=== PATIENT | male | born 1965 | race Caucasian/White ===

== ENCOUNTER 2017-06-11 07:51 | Emergency (ER) | payer OTHER ==
[2017-06-11 08:02] VITALS: BP 104/71
--- NOTE | 2017-06-11 08:22 | UC ---
Respiratory Complaint HPI - HPI Summary HPI Summary: Patient presents with complaints of six day onset runny nose, sore throat, and loose cough. He denies fever, chills, chest pain, dyspnea, abdominal pian, nausea, vomiting, or diarrhea. He reports no know ill contact, recent travel. He states he just wanted to make sure he didn't need additional treatment. - History of Current Complaint Chief Complaint: UCRespiratory Stated Complaint: FEVER SINUS ISSUE Time Seen by Provider: 06/11/17 08:10 Hx Obtained From: Patient Onset/Duration: Gradual Onset, Lasting Days Severity Initially: Moderate Severity Currently: Moderate Character: Cough: Nonproductive Aggravating Factors: Nothing Alleviating Factors: Spontaneous Resolution Associated Signs And Symptoms: Positive: URI, Nasal Congestion, Sinus Discomfort - Risk Factors Pulmonary Embolism Risk Factors: Negative Cardiac Risk Factors: Negative Pseudomonas Risk Factors: Negative Tuberculosis Risk Factors: Negative - Allergies/Home Medications Allergies/Adverse Reactions: Allergies Allergy/AdvReac Type Severity Reaction Status Date / Time No Known Allergies Allergy Verified 06/11/17 07:57 Home Medications: Home Medications Aspirin [Aspirin Adult Low Dose] 06/11/17 [History] Metoprolol Tartrate TAB* [Lopressor TAB*] 06/11/17 [History] PMH/Surg Hx/FS Hx/Imm Hx Previously Healthy: Yes Cardiovascular History: Atrial Fibrillation - Surgical History Surgical History: Yes Surgery Procedure, Year, and Place: 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 app[facility] - Family History Known Family History: Positive: Cardiac Disease - Social History Occupation: Employed Full-time Lives: Alone Alcohol Use: Occasionally Substance Use Type: None Smoking Status (MU): Never Smoked Tobacco - Immunization History Most Recent Influenza Vaccination: 2012 Most Recent Tetanus Shot: unknown Most Recent Pneumonia Vaccination: never Review of Systems Constitutional: Fatigue Skin: Negative Eyes: Negative ENT: Sore Throat, Nasal Discharge, Sinus Congestion Respiratory: Cough Cardiovascular: Negative Gastrointestinal: Negative Genitourinary: Negative Motor: Negative Neurovascular: Negative Musculoskeletal: Negative Neurological: Negative Psychological: Negative Is Patient Immunocompromised?: No All Other Systems Reviewed And Are Negative: Yes Physical Exam Triage Information Reviewed: Yes Appearance: Well-Appearing Vital Signs: Initial Vital Signs Temp 98.2 F 06/11/17 07:59 Pulse 58 06/11/17 07:59 Resp 16 06/11/17 07:59 BP 104/71 06/11/17 07:59 Pulse Ox 98 06/11/17 07:59 Vital Signs Reviewed: Yes Eye Exam: Normal ENT: Positive: Pharyngeal erythema Dental Exam: Normal Neck exam: Normal Neck: Positive: 1 Respiratory Exam: Normal Cardiovascular Exam: Normal Skin Exam: Normal UC Diagnostic Evaluation - Laboratory O2 Sat by Pulse Oximetry: 98 Respiratory Course/Dx - Course Course Of Treatment: Patient presents with six day onset runny nose, sore throat , chest congestion and cough. Vital signs are normal, exam benign, with mile erythema of the pharynx. Rapid strep was negative, and influennza Bscreen postive. However the patient is outside the window for treatment. The test results were discussed with the patient. Lung sounds were grossly clear, and he was in no repiratory distress. His symptomatology was consistent with viral syndrome. Recommendations include rest, increase fluids, OTC cough and cold medications and monitory or symptoms improvement, if symptoms do not improve as ancitipated he was told to follow up with PCP, of go to the ER. - Differential Dx/Diagnosis Differential Diagnosis/HQI/PQRI: Influenza, Other - pharyngitis Provider Diagnoses: influenza b. pharyngitis Discharge - Discharge Plan Condition: Stable Disposition: HOME Patient Education Materials: Influenza (ED), Pharyngitis (ED) Referrals: Demarcus Crow MD [Primary Care Provider] -
== END 2017-06-11 08:43 | disposition home or self-care (01) ==
LOC: UCEAST 07:51
DX: J10.1 Influenza due to other identified influenza virus with other respiratory manifestations (principal); J02.9 Acute pharyngitis, unspecified; I48.91 Unspecified atrial fibrillation; Z79.82 Long term (current) use of aspirin
CPT/HCPCS: 87502; 87651; 99211; G0463

== ENCOUNTER 2017-06-18 08:58 | Emergency (ER) | payer OTHER ==
--- NOTE | 2017-06-18 09:04 | UC ---
Throat Pain/Nasal Ra HPI - HPI Summary HPI Summary: 52 year old male presents with sinus congestion, cough and headache - History of Current Complaint Stated Complaint: SINUS CONGESTION Time Seen by Provider: 06/18/17 09:04 Hx Obtained From: Patient Onset/Duration: Sudden Onset Severity: Moderate Pain Scale Used: 0-10 Numeric - 5 Cough: Nonproductive Associated Signs & Symptoms: Positive: Negative Related History: Seasonal Allergies - Allergies/Home Medications Allergies/Adverse Reactions: Allergies Allergy/AdvReac Type Severity Reaction Status Date / Time No Known Allergies Allergy Verified 06/11/17 07:57 PMH/Surg Hx/FS Hx/Imm Hx - Surgical History Surgical History: Yes Surgery Procedure, Year, and Place: Dupitron's Disease nodules removed from [facility], 2002, [place]. appy - Family History Known Family History: Positive: Cardiac Disease - Social History Alcohol Use: Occasionally Substance Use Type: None Smoking Status (MU): Never Smoked Tobacco - Immunization History Most Recent Influenza Vaccination: 2012 Most Recent Tetanus Shot: unknown Most Recent Pneumonia Vaccination: never Review of Systems Constitutional: Negative Skin: Negative Eyes: Negative ENT: Sore Throat, Nasal Discharge, Sinus Congestion, Sinus Pain/Tenderness Respiratory: Negative Cardiovascular: Negative Gastrointestinal: Negative Genitourinary: Negative Motor: Negative Neurovascular: Negative Musculoskeletal: Negative Neurological: Negative Psychological: Negative All Other Systems Reviewed And Are Negative: Yes Physical Exam Triage Information Reviewed: Yes Vital Signs Reviewed: Yes Eye Exam: Normal ENT: Positive: Pharyngeal erythema, Nasal congestion, Nasal drainage, Sinus tenderness Dental Exam: Normal Neck exam: Normal Neck: Positive: 1 Respiratory Exam: Normal Cardiovascular Exam: Normal Abdominal Exam: Normal Musculoskeletal Exam: Normal Neurological Exam: Normal Psychological Exam: Normal Skin Exam: Normal Throat Pain/Nasal Course/Dx - Differential Dx/Diagnosis Provider Diagnoses: sinusitis. allergic rhinitis Discharge - Discharge Plan Condition: Stable Disposition: HOME Prescriptions: Amoxicillin/Clavulanate TAB* [Augmentin TAB 875*] 875 mg PO BID #20 tab Guaifenesin-Codeine [Cheratussin AC] 1 teasp PO BEDTIME PRN #120 ml MDD 5 ml PRN Reason: Cough LoraTADine TAB(NF) [Claritin 10 MG TAB(NF)] 10 mg PO DAILY #30 tab Methylprednisolone [Medrol Dosepak 4 MG*] 4 mg PO .SEE AMADOU INSTRUCTION #21 tab Patient Education Materials: Sinusitis (ED) Referrals: Demarcus Crow MD [Primary Care Provider] -
[2017-06-18 09:29] VITALS: BP 94/66
== END 2017-06-18 09:35 | disposition home or self-care (01) ==
LOC: UCEAST 08:58
DX: J30.9 Allergic rhinitis, unspecified (principal); J32.9 Chronic sinusitis, unspecified
CPT/HCPCS: 99211; G0463